=== PATIENT | female | born 1960 | race Caucasian/White ===

== ENCOUNTER 2016-11-07 23:16 | Emergency (ER) | payer OTHER ==
[~2016-11-07] VITALS: Ht 162.6 cm; Wt 62.6 kg
[2016-11-07 23:23] VITALS: Ht 162.6 cm; Wt 62.6 kg
[2016-11-07] MEDS ORDERED: SODIUM CHLORIDE 0.9% 500ML 500 ML IV STA (23:54)
[2016-11-07] MEDS ORDERED: KETOROLAC TROMETHAMINE 30 MG/ML VIAL IV STA (23:54)
[2016-11-08 00:11] LABS: URINE APPEARANCE CLEAR (CLEAR); URINE BILIRUBIN NEG (NEG); URINE COLOR ORANGE; URINE EPITHELIAL CELL AUTO 0-5 /lpf (0-5); URINE NITRITE NEG (NEG); URINE PH 5.5 (4.5-7.5); URINE SPECIFIC GRAVITY 1.002 (1.000-1.030); UROBILINOGEN NEG (NEG)
[2016-11-08 00:29] LABS: BASO % 0.7 %; BASO ABS # 0.06 K/uL (0-0.2); COMPLETE YES; EOS % 2.8 %; HEMATOCRIT 45.2 % (37-47); IG% 0.1 %; LYMPH % 31.9 %; LYMPH ABS # 2.82 K/uL (1.2-3.4); MEAN CELL VOLUME 91.7 fL (80-100); MEAN CORPUSCULAR HEMOGLOBIN 30.8 pg (25-34); MEAN CORPUSCULAR HGB CONC 33.6 g/dl (32-36); MEAN PLATELET VOLUME 10.8 fL (7.4-10.4); NEUT % 58.5 %; PLATELET COUNT 271 K/uL (130-400); RED BLOOD COUNT 4.93 M/uL (4.2-5.4); WHITE BLOOD COUNT 8.85 K/uL (4.8-10.8)
[2016-11-08 00:31] LABS: MANUAL MICROSCOPIC REQUIRED? NO; REVIEW REQ? NO
[2016-11-08 00:46] LABS: BUN/CREATININE RATIO 19.3 (10-20); CALCIUM 9.1 mg/dl (8.5-10.1); CREATININE 0.98 mg/dl (0.60-1.20); POTASSIUM 3.6 mmol/L (3.5-5.1)
[2016-11-08] MEDS ORDERED: LIOT50TA3 PO (00:50)
[2016-11-08] MEDS ORDERED: LEVO50TA6 PO (00:51)
[2016-11-08] MEDS ORDERED: LIOT5TAB9 PO (00:52)
[2016-11-08] MEDS ORDERED: ZNTT/150 PO (00:54)
[2016-11-08] MEDS ORDERED: VENL37.593 PO (00:55)
[2016-11-08] MEDS ORDERED: ACYC1CAP8 PO (00:57)
[2016-11-08 01:18] VITALS: BP 126/62; PULSE 76; TEMP 36.6; O2SAT 94
[2016-11-08] MEDS ORDERED: OXYC-57 PO (01:40)
[2016-11-08] MEDS ORDERED: PERCOCET HOME PACK PO ONE (01:45)
--- NOTE | 2016-11-08 01:59 | EMERGENCY ROOM VISIT NOTE ---
History Report prepared by Saray: Marvin Kong Under the Supervision of: Dr. Zenobia Raymundo D.O. First contact with patient: 23:32 Chief Complaint: URINARY SYMPTOMS Stated Complaint: BLOOD IN THE URINE, KINDEY PAIN Nursing Triage Summary: Patient was to be treated with 10 days of Macrobid for UTI but stopped on day 7. Now patient with back pain and blood in urine. History of Present Illness The patient is a 56 year old female who presents to the Emergency Room with complaints of persistent urinary symptoms beginning shortly prior to arrival. She states that she was at a [employer] when she noticed that she was urinating a large amount of blood. She states that her symptoms began with lower back "aches" a few weeks ago. She has a history of UTIs and states that the lower back pain was very similar to her previous UTIs. The patient was seen by her PCP for back pain about a week ago, and was placed on Macrobid. She states that she has been on Macrobid for 7 days, but nothing has improved her symptoms. She also complains of nausea and an episode of lightheadedness occurring earlier today. She denies any vomiting. The patient has no known personal history of kidney stones, but does have a family history. Source of History: patient Onset: Shortly prior to arrival Quality: other (urinary symptoms) Timing: other (persistent) Modifying Factors (Relieving): other (none ) Associated Symptoms: + nausea, No vomiting Note: The patient complains of an episode of lightheadedness. Review of Systems See HPI for pertinent positives & negatives. A total of 10 systems reviewed and were otherwise negative. Past Medical & Surgical Medical Problems: (1) Depression (2) Herpes (3) UTI (urinary tract infection) Family History No pertinent family history stated. Social History Smoking Status: Former Smoker Alcohol Use: none Drug Use: none Housing Status: lives alone Current/Historical Medications Scheduled Acyclovir (Zovirax), 400 MG PO DAILY Levothyroxine Sodium (Levothyroxine Sodium), 50 MCG PO DAILY Liothyronine Sodium (Liothyronine Sodium), 5 MCG PO DAILY Venlafaxine Hcl (Venlafaxine Extended Rel), 37.5 MG PO DAILY Scheduled PRN Oxycodone/Acetaminophen 5MG/325MG (Percocet 5MG/325MG), 1 TABLET PO Q4H PRN for Pain Ranitidine (Zantac), 150 MG PO BID PRN for GI Upset Allergies Coded Allergies: No Known Allergies (Unverified , 11/08/16) Physical Exam Vital Signs Date Time Temp Pulse Resp B/P Pulse Ox O2 Delivery O2 Flow Rate FiO2 11/08/16 01:18 36.6 76 16 126/62 94 Room Air 11/07/16 23:23 36.8 80 18 136/93 97 Room Air Physical Exam HEENT: Head - normocephalic and atraumatic Pupils are equal, round, and reactive to light. Extraocular eye muscles are intact, and sclera are anicteric. Nose - moist nasal mucosa without discharge. Mouth - moist buccal mucosa. Oropharynx is nonerythematous and there is no tonsillar exudate or edema noted. Neck: Supple; no JVD, nuchal rigidity, cervical lymphadenopathy. Heart: Regular rate and rhythm. There is a normal S1 and S2 with no murmurs, clicks, or gallops appreciated. Lungs: Clear to auscultation bilaterally with no wheezes, rales, or rhonchi. Abdomen: Soft, completely nontender, nondistended, with good bowel sounds. There are no palpable pulsatile masses or hepatosplenomegaly. There is no guarding, rigidity, or rebound noted. Back: Bilateral low back pain with palpation. Extremities: No evidence of cyanosis, clubbing, or edema. There are easily palpable peripheral pulses. Skin: warm and dry with good turgor and no rashes. Medical Decision & Procedures ER Provider Diagnostic Interpretation: CT results per statrad and my review. CT ABDOMEN & PELVIS: No comparison. There is a 7 mm calculus in the proximal left ureter at the ureteropelvic junction resulting in mild left hydronephrosis. No evidence of periuteteral, perinephric stranding, or free fluid. Nonobstructing calculus in the inferior pole of the left kidney measures 4 mm. There is a circumscribed 8.3 x 3.4 cm tubular fluid-filled structure in the right lower quadrant which appears to be contiguous with the appendix and cecal tip and has mild curvilinear calcifications in the wall without evidence of significant nodularity (although valuation is limited due to lack of IV contrast material). 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 No evidence of rupture or pseudomyxoma peritonei. Differential considerations would include mucinous cystadenoma or cystadenocarcinoma, cecal carcinoma or an ovarian cystic mass. A 1.3 cm pericecal/periappendiceal lymph node is indeterminate. 7 mm noncalcified nodule in the left lung base is indeterminate. Follow-up and recommendations per final report. Gallbladder is surgically absent. Remaining solid organs are unremarkable on this nonconstrast examination tailored for the evaluation of renal calculi. Uterus is surgically absent. Laboratory Results 11/08/16 00:05 Red Blood Count 4.93, Mean Corpuscular Volume 91.7, Mean Corpuscular Hemoglobin 30.8, Mean Corpuscular Hemoglobin Concent 33.6, Mean Platelet Volume 10.8, Neutrophils (%) (Auto) 58.5, Lymphocytes (%) (Auto) 31.9, Monocytes (%) (Auto) 6.0, Eosinophils (%) (Auto) 2.8, Basophils (%) (Auto) 0.7, Neutrophils # (Auto) 5.18, Lymphocytes # (Auto) 2.82, Monocytes # (Auto) 0.53, Eosinophils # (Auto) 0.25, Basophils # (Auto) 0.06 11/08/16 00:05 Test 11/07/16 23:40 11/08/16 00:05 Urine Color ORANGE Urine Appearance CLEAR (CLEAR) Urine pH 5.5 (4.5-7.5) Urine Specific [place] 1.002 (1.000-1.030) Urine Protein TRACE (NEG) Urine Glucose (UA) NEG (NEG) Urine Ketones NEG (NEG) Urine Occult Blood 3+ (NEG) Urine Nitrite NEG (NEG) Urine Bilirubin NEG (NEG) Urine Urobilinogen NEG (NEG) Urine Leukocyte Esterase TRACE (NEG) Urine WBC (Auto) 1-5 /hpf (0-5) Urine RBC (Auto) >30 /hpf (0-4) Urine Hyaline Casts (Auto) 1-5 /lpf (0-5) Urine Epithelial Cells (Auto) 0-5 /lpf (0-5) Urine Bacteria (Auto) NEG (NEG) White Blood Count 8.85 K/uL (4.8-10.8) Red Blood Count 4.93 M/uL (4.2-5.4) Hemoglobin 15.2 g/dL (12.0-16.0) Hematocrit 45.2 % (37-47) Mean Corpuscular Volume 91.7 fL (80-100) Mean Corpuscular Hemoglobin 30.8 pg (25-34) Mean Corpuscular Hemoglobin Concent 33.6 g/dl (32-36) Platelet Count 271 K/uL (130-400) Mean Platelet Volume 10.8 fL (7.4-10.4) Neutrophils (%) (Auto) 58.5 % Lymphocytes (%) (Auto) 31.9 % Monocytes (%) (Auto) 6.0 % Eosinophils (%) (Auto) 2.8 % Basophils (%) (Auto) 0.7 % Neutrophils # (Auto) 5.18 K/uL (1.4-6.5) Lymphocytes # (Auto) 2.82 K/uL (1.2-3.4) Monocytes # (Auto) 0.53 K/uL (0.11-0.59) Eosinophils # (Auto) 0.25 K/uL (0-0.5) Basophils # (Auto) 0.06 K/uL (0-0.2) RDW Standard Deviation 43.3 fL (36.4-46.3) RDW Coefficient of Variation 12.9 % (11.5-14.5) Immature Granulocyte % (Auto) 0.1 % Immature Granulocyte # (Auto) 0.01 K/uL (0.00-0.02) Anion Gap 9.0 mmol/L (3-11) Est Creatinine Clear Calc Drug Dose 54.7 ml/min Estimated GFR () 74.2 Estimated GFR (Non- 64.0 BUN/Creatinine Ratio 19.3 (10-20) Calcium Level 9.1 mg/dl (8.5-10.1) Medications Administered Medications (Trade) Dose Ordered Sig/Raquel Route Start Time Stop Time Status Last Admin Dose Admin Sodium Chloride (Nss 500ml) 500 ml @ 999 mls/hr Q31M STAT IV 11/07/16 23:54 11/08/16 00:24 DC 11/08/16 00:12 999 MLS/HR Ketorolac Tromethamine (Toradol Inj) 30 mg NOW STAT IV 11/07/16 23:54 11/07/16 23:56 DC 11/08/16 00:12 30 MG Oxycodone/ Acetaminophen (Percocet 5/ 325MG Home Pack) 1 homepack UD ONCE PO 11/08/16 01:45 11/08/16 01:46 DC 11/08/16 01:49 1 HOMEPACK Procedure Medications include: Toradol IV, NSS IV, Percocet Home Pack PO. ED Course 0: Past medical records reviewed. The patient was evaluated in room C1. A complete history and physical exam was performed. An IV lock was initiated and labs are drones above. Urinalysis revealed a significant amount of blood with no signs of infection. 2354: Ordered Toradol Inj 30 mg IV, NSS 500 mL @ 999 mL/hr IV. She went for CT scan of the abdomen/pelvis to evaluate for kidney stone. 0145: Ordered Percocet 5/325 mg home pack PO. I discussed findings and results with the patient. She verbalized agreement of the treatment plan. The patient was discharged home. Medical Decision The patient is a 56 year old female who presents to the ED with urinary symptoms. Differential diagnosis includes kidney stone, hemorrhagic cystitis, as well as other etiologies were considered. Laboratory studies: No leukocytosis, Stable H&H. BUN 19. Creatinine 0.9. Glucose 103. Urinalysis shows trace protein, 3+ blood, greater than 30 RBCs, no WBCs and no bacteria. Patient presents with urinary symptoms for she took a course of Macrobid. After completing this, the patient had developed some bilateral low back pain and flank pain with left being worse than the right. She develops hematuria tonight and presents here for evaluation. She had moderately for pain with IV Toradol. CT scan shows evidence of a 7 mm calculus at the left proximal ureter. There is also a finding surrounding the appendix though require very close follow-up. She has no pain in the right lower quadrant of her abdomen to suggest appendicitis at this time. The patient is from out of town. She was given a prescription for pain medications and some pain meds to go home with and encouraged to have close follow up with her PCP and urology on Thursday if the pain persists that she may require urological procedure for that sized stone. The patient was told of the closest emergency room for intractable abdominal pain, vomiting, or fever. Impression Primary Impression: Left ureteral calculus Scribe Attestation The scribe's documentation has been prepared under my direction and personally reviewed by me in its entirety. I confirm that the note above accurately reflects all work, treatment, procedures, and medical decision making performed by me. Departure Information Dispostion Home / Self-Care Prescriptions Oxycodone/Acetaminophen 5MG/325MG (PERCOCET 5MG/325MG) Tab 1 TABLET PO Q4H Y for Pain, #14 TAB Prov: Zenobia Raymundo D.O. 11/08/16 Forms HOME CARE DOCUMENTATION FORM, IMPORTANT VISIT INFORMATION Patient Instructions Kidney Stones, Kidney Stones Expectant Therapy, [facility] Additional Instructions Rest. Take plenty of clear liquids Go to the closest ER for intractable abdominal pain, vomiting, or fever. Follow up on Thursday with Urology for a 7mm ureteral stone Follow up with PCP on thursday for finding near the appendix and pulmonary nodule Percocet - 1 tab. every 4 hours for pain
--- NOTE | 2016-11-08 06:16 | DIAGNOSTIC IMAGING REPORT ---
ABDOMEN AND PELVIS CT WITHOUT CONTRAST CT DOSE: 479.71 mGy.cm HISTORY: Flank pain eval for kidney stone TECHNIQUE: Multiaxial CT images of the abdomen and pelvis were performed without the use of intravenous and oral contrast according to the standard department stone protocol. COMPARISON STUDY: None. FINDINGS: Lung bases are clear. 6 mm noncalcified nodular density left base. Liver spleen and pancreas are unremarkable. 7 mm calculus proximal left ureter. Mild left hydronephrosis. Additional lower pole nonobstructing renal calcification measuring 4 mm on the left. Bowel pattern is nonobstructive. 8 x 3.5 mm fluid-filled tubular structure within the right lower quadrant. Mild wall earlier calcifications. Differential considerations include appendiceal mucocele, ovarian cystic lesion, versus distended uterine tube. Remainder the pelvis is unremarkable. Gallbladder is absent surgically. IMPRESSION: 1. 7 mm calculus proximal left ureter with mild left hydronephrosis. 2. 6 mm noncalcified nodular density left base. Follow-up per Fleischner criteria. 3. 8 x 3.5 cm partially calcified tubular structure right lobe pelvis. Considerations include distended uterine tube, appendiceal mucocele, versus ovarian cystic lesion. Please refer to below summary of Fleischner criteria recommendations for follow-up of incidental CT nodules (Colin Olea, Guidelines for management of small pulmonary nodules detected on CT scans: A statement from the Fleischner Society, Radiology 237: [phone].) Low Risk Patient: Minimal or no smoking or other known risk factors for malignancy <=4 mm: No follow-up needed. >4-6 mm: Initial follow-up CT at 12 months; if unchanged, no further follow-up. >6-8 mm: Initial follow-up CT at 6-12 months then at 18-24 months if no change. >8 mm: Follow-up CT at \R\3, 9, 24 months, or PET and/or biopsy. High Risk Patient: History of smoking or other known risk factors <=4 mm: Follow-up at 12 months; if unchanged, no further follow-up. >4-6 mm: Initial follow-up CT at 6-12 months then at 18-24 months if no change. >6-8 mm: Initial follow-up CT at 3-6 months then at 9-12 and 24 months if no change. >8 mm: Same as low risk patient. Note: Nodule size measured as average of length and width. Ground glass or partly solid nodules may require longer follow-up to exclude indolent adenocarcinoma. Electronically signed by: Stanislaw Soni M.D. 11/08/2016 6:15 AM Dictated Date/Time: 11/08/2016 6:09 AM
== END 2016-11-08 01:49 | disposition home or self-care (01) ==
LOC: C.EDB 23:19 → C.EDC 11-08 01:49
DX: N20.1 Calculus of ureter (principal); F32.9 Major depressive disorder, single episode, unspecified; Z87.891 Personal history of nicotine dependence; Z79.899 Other long term (current) drug therapy